=== PATIENT | male | born 1960 | race Asian ===

== ENCOUNTER 2016-11-20 06:55 | Day surgery (SDC) | payer OTHER ==
[~2016-11-20] VITALS: Ht 172.7 cm; Wt 67.7 kg
[2016-11-20 07:40] VITALS: Ht 172.7 cm; Wt 67.7 kg
[2016-11-20] MEDS ORDERED: AMLO-147 PO (07:44)
[2016-11-20 08:20] VITALS: BP 135/89; PULSE 60; RESP 16
[2016-11-20 09:10] VITALS: BP 125/81; PULSE 52; RESP 24
--- NOTE | 2016-11-20 10:49 | GILP ---
DATE OF PROCEDURE: PREOPERATIVE DIAGNOSIS: Screening colonoscopy to rule out colon polyps. POSTOPERATIVE DIAGNOSES: Normal colonoscopy. DESCRIPTION OF PROCEDURE: After informed written consent was obtained, the patient was asked to lie on the left lateral side. Intravenous anesthesia was given by anesthesiologist, Dr. Mijares. Whe n the patient became somnolent, one Olympus video colonoscope was introduced into the rectum and sco pe was advanced all the way to the cecum. Entire colon appeared perfectly normal with no mucosal ab normality. Endoscope at this time was withdrawn from the cecum. On the way out, further careful ev aluation was carried out. No polyps or any other abnormality detected. Retroflexion revealed skin tags at the anus. Scope at this time was withdrawn and no additional abnormalities detected and the procedure was terminated. PLAN: Recommend colonoscopy in 10 years. Dictated By: FLOR FRY/MORRIS Conf#: [id number] DID#: [id number] CC: [facility];*EndCC*
== END 2016-11-20 12:57 | disposition home or self-care (01) ==
LOC: GIL 06:55
PROVIDERS: ATTEND Internal Medicine Gastroenterology
DX: Z12.11 Encounter for screening for malignant neoplasm of colon (principal); I10 Essential (primary) hypertension
CPT/HCPCS: 45378; Z7610